=== PATIENT | female | born 1965 | race Two or more races ===

== ENCOUNTER 2016-07-07 21:24 | Emergency (ER) | payer SELFPAY ==
[~2016-07-07] VITALS: Ht 152.4 cm; Wt 62.9 kg
[2016-07-07] MEDS ORDERED: SODIUM CHLORIDE FLUSH 10ML SYR IVF ONE (22:00)
[2016-07-07] MEDS ORDERED: NITROGLYCERIN OINT 2%, 1GM TP ONE ×2 (22:00→22:08)
[2016-07-07 22:03] LABS: HEMOGLOBIN 13.1 g/dL (11.7-16.4)
[2016-07-07 22:16] LABS: ASPARTATE AMINO TRANSFERASE 21 U/L (15-37); BLOOD UREA NITROGEN 11 mg/dL (7-18)
[2016-07-07] MEDS ORDERED: ATEN25TA PO (22:22)
[2016-07-07 22:23] LABS: IS PT STATUS REG ER OR PRE ER? YES
[2016-07-07] MEDS ORDERED: PLEASE ENTER ALLERGIES MC SCH ×2 (22:30)
[2016-07-07 23:11] VITALS: BP 162/91
== END 2016-07-07 23:13 | disposition home or self-care (01) ==
LOC: ED 22:07
DX: I10 Essential (primary) hypertension (principal)
CPT/HCPCS: 36415; 71010; 80053; 81003; 83690; 84484; 84703; 85025; 93005